=== PATIENT | female | born 1985 | race Asian ===

== ENCOUNTER 2021-07-20 00:52 | Emergency (ER) | payer BC ==
[~2021-07-20] VITALS: Ht 154.9 cm; Wt 63.5 kg
[2021-07-20 01:15] VITALS: BP_SYST 123
[2021-07-20 02:15] LABS: BILIRUBIN,URINE NEGATIVE (NEGATIVE); BLOOD, URINE 3+ (NEGATIVE); CLARITY/URINE CLOUDY (CLEAR); COLOR,URINE RED (YELLOW); GLUCOSE,URINE NEGATIVE (NEGATIVE); KETONES,URINE NEGATIVE (NEGATIVE); LEUKOCYTE ESTERASE ,URINE NEGATIVE (NEGATIVE); NITRITE, URINE NEGATIVE (NEGATIVE); PROTEIN URINE NEGATIVE (NEGATIVE)
[2021-07-20 02:16] LABS: UROBILINOGEN,URINE 0.2 (0.2-1.0)
[2021-07-20 02:17] LABS: CALCIUM 8.4 mg/dL (8.4-11.0); CREATININE 0.5 mg/dL (0.55-1.30); POTASSIUM 3.2 mmol/L (3.5-5.1)
[2021-07-20 02:22] LABS: ALBUMIN 3.9 g/dL (3.4-4.8); BASOPHILS % (AUTO) 0.4 % (0.0-2.0); EOSINOPHILS # (AUTO) 0.1 K/uL (0.0-0.4); EOSINOPHILS % (AUTO) 0.9 % (0.0-4.0); HEMATOCRIT 35.9 % (36-48); HEMOGLOBIN 12.2 g/dL (12.0-16.0); LYMPHOCYTES # (AUTO) 1.1 K/uL (1.0-5.5); LYMPHOCYTES % (AUTO) 10.9 % (20.5-51.5); MEAN CORPUSCULAR HEMOGLOBIN 30 pg (27-31); MEAN CORPUSCULAR HGB CONC 34 % (32-36); MEAN CORPUSCULAR VOLUME 89 fL (79.0-98.0); MONOCYTES # (AUTO) 0.5 K/uL (0.0-1.0); NEUTROPHILS # (AUTO) 8.3 K/uL (1.8-7.7); NEUTROPHILS % (AUTO) 82.8 % (40.0-70.0); PLATELET COUNT (AUTO) 200 K/uL (130-430); RED BLOOD CELL COUNT(AUTO) 4.05 MIL/uL (4.2-6.2); RED CELL DISTRIBUTION WIDTH 13.4 % (9.0-15.0); TOTAL BILIRUBIN 0.5 mg/dL (0.0-1.0)
[2021-07-20 02:43] LABS: BACTERIA,URINE FEW /HPF (None Seen); RBC,URINE 50-80 /HPF (0-3); WBC,URINE 0-3 /HPF (0-3)
[2021-07-20] MEDS ORDERED: NACL 0.9% 1,000 ML IV ONE (03:30)
[2021-07-20] MEDS ORDERED: PROCHLORPERAZINE EDISYLATE 10 MG/2 ML VIAL IVP ONE (03:30)
[2021-07-20] MEDS ORDERED: MORPHINE 4 MG INJ. 4 MG/ML VIAL IVP ONE (03:30)
[2021-07-20] MEDS ORDERED: PHE25 PO (05:20)
[2021-07-20] MEDS ORDERED: HYDR-3917 PO (05:20)
[2021-07-20 05:43] VITALS: BP_SYST 123
== END 2021-07-20 05:43 | disposition home or self-care (01) ==
LOC: SED 00:52
DX: O03.9 Complete or unspecified spontaneous abortion without complication (principal); Z3A.10 10 weeks gestation of pregnancy; Z88.8 Allergy status to other drugs, medicaments and biological substances
CPT/HCPCS: 36415; 76801; 76817; 80053; 81000; 81025; 84702; 85025; 86900; 86901; 96361; 96374; 96375; 99284; J0780; J2270; J7030